=== PATIENT | male | born 1950 | race Two or more races ===

== ENCOUNTER 2020-02-21 04:54 | Inpatient (IN) | payer OTHER, MEDICAID ==
[~2020-02-21] VITALS: Ht 167.6 cm; Wt 87.8 kg
[2020-02-21 06:59] LABS: Basophils # (auto) 0 10 ^3/uL (0-0.2); Basophils % (auto) 0.3 % (0.0-2.0); Eosinophils # (auto) 0 10 ^3/uL (0-0.8); Eosinophils % (auto) 0.1 % (0.0-7.0); Hematocrit 38.6 % (41.0-53.0); Hemoglobin 13.2 g/dL (13.5-17.5); Lymphocytes % (auto) 11.1 % (10.0-50.0); Mean Corpuscular Hemoglobin 30.2 pg (28.0-32.0); Mean Corpuscular Hgb Conc. 34.2 g/dL (32.0-36.0); Mean Corpuscular Volume 88.3 fL (80.0-100.0); Neutrophils # (auto) 6.7 10 ^3/uL (1.6-8.6); Neutrophils % (auto) 76.5 % (37.0-80.0); Red Blood Cells 4.37 10^6/uL (4.5-5.90); Red Cell Distribution Width 14.7 % (11.8-14.3); White Blood Cell 8.8 10^3/uL (4.4-10.8)
[2020-02-21 07:14] LABS: INR 1.1 (0.9-1.15); Partial Thromboplastin Time 32.4 sec (23.0-31.2)
[2020-02-21 07:15] LABS: Chloride 98 mmol/L (98-107); Sodium 129 mmol/L (136-145)
[2020-02-21 07:18] LABS: Albumin 3.1 g/dL (3.4-5.0); Anion Gap 6 (5-15); BUN/Creatinine Ratio 14.4; Blood Urea Nitrogen 18 mg/dL (7-18); Calcium 9.1 mg/dL (8.5-10.1); Carbon Dioxide 25 mmol/L (21-32); GFR African American 73 mL/min; GFR Non-African American 61 mL/min; Glucose 237 mg/dL (74-106); Magnesium 1.9 mg/dL (1.6-2.6)
[2020-02-21 07:24] LABS: Alanine Aminotransferase 118 U/L (16-61); Alkaline Phosphatase 93 U/L (45-117); Aspartate Aminotransferase 77 U/L (15-37); Bilirubin, Total 0.6 mg/dL (0.2-1.0)
[2020-02-21] MEDS ORDERED: REMDESIVIR PER PHARMACY 0 ML IV SCH (15:00)
[2020-02-21] MEDS ORDERED: diphenhdrAMINE HCL 50 MG/1 ML VL IV PRN (15:00)
[2020-02-21] MEDS ORDERED: MORPHINE SULFATE INJECTION 2 MG/ML SYRG IV PRN ×2 (15:00→15:15)
[2020-02-21] MEDS ORDERED: NITROGLYCERIN 0.4 MG SL TAB SL PRN (15:00)
[2020-02-21] MEDS ORDERED: DEXTROSE (50%) 50ML SYRG IV PRN (15:15)
[2020-02-21] MEDS ORDERED: ONDANSETRON HCL 4 MG/2 ML VIAL IV PRN (15:15)
[2020-02-21] MEDS ORDERED: TEMAZEPAM 15 MG CAP PO PRN (15:15)
[2020-02-21] MEDS ORDERED: LACTULOSE 20Gm/30ML SOLN PO PRN (15:15)
[2020-02-21] MEDS ORDERED: traMADol HCL 50 MG TAB PO PRN (15:15)
[2020-02-21] MEDS ORDERED: ACETAMINOPHEN 500 MG TAB PO PRN (15:15)
[2020-02-21] MEDS: BUDESONIDE (INHALATION) 180 MCG IH IN SCH (19:58)
[2020-02-21] MEDS: InsuLIN REG 1unit/0.01ml Soln (100units/ml) SC SCH ×2 (22:00→22:54)
[2020-02-21] MEDS: ACCU-CHEK COMFORT CURVE STRIP VI SCH ×2 (22:00→22:54)
[2020-02-21] MEDS: SODIUM CHLORIDE 0.9% 1,000 ML IV SCH (22:53)
[2020-02-21] MEDS: FAMOTIDINE (10MG/ML) 2ML VL IV SCH (22:54)
[2020-02-21] MEDS: ENOXAPARIN SOD 40 MG/0.4 ML SYRINGE SC SCH (22:55)
[2020-02-22] VITALS: BP 155/72
[2020-02-22] MEDS: SODIUM CHLORIDE 0.9% 1,000 ML IV SCH (04:41)
[2020-02-22 05:49] LABS: Basophils # (auto) 0 10 ^3/uL (0-0.2); Basophils % (auto) 0.3 % (0.0-2.0); Eosinophils # (auto) 0 10 ^3/uL (0-0.8); Eosinophils % (auto) 0.3 % (0.0-7.0); Hematocrit 35.7 % (41.0-53.0); Hemoglobin 12.3 g/dL (13.5-17.5); Lymphocytes # (auto) 0.9 10 ^3/uL (0.4-5.4); Mean Corpuscular Hemoglobin 30.5 pg (28.0-32.0); Mean Corpuscular Hgb Conc. 34.6 g/dL (32.0-36.0); Mean Corpuscular Volume 88.2 fL (80.0-100.0); Monocytes % (auto) 11.8 % (0.0-12.0); Neutrophils # (auto) 6.5 10 ^3/uL (1.6-8.6); Neutrophils % (auto) 76.6 % (37.0-80.0); Nucleated Red Blood Cells % 0.1 %; Red Blood Cells 4.04 10^6/uL (4.5-5.90); Red Cell Distribution Width 14.4 % (11.8-14.3); White Blood Cell 8.4 10^3/uL (4.4-10.8)
[2020-02-22 06:05] LABS: Albumin 2.4 g/dL (3.4-5.0); Calcium 8.3 mg/dL (8.5-10.1); Potassium 3.9 mmol/L (3.5-5.1)
[2020-02-22 06:09] LABS: BUN/Creatinine Ratio 12.7; Bilirubin, Total 0.5 mg/dL (0.2-1.0); Total Protein 7.1 g/dL (6.4-8.2)
[2020-02-22] MEDS: InsuLIN REG 1unit/0.01ml Soln (100units/ml) SC SCH ×4 (07:00→22:35)
[2020-02-22] MEDS: ACCU-CHEK COMFORT CURVE STRIP VI SCH ×4 (07:03→22:36)
[2020-02-22] MEDS: CHOLECALCIFEROL (VITD3) 2,000 UNIT CAP/TAB PO SCH (09:24)
[2020-02-22] MEDS: ASCORBIC ACID 1,000 MG TAB PO SCH (09:24)
[2020-02-22] MEDS: ZINC SULFATE 220mg CAP or TAB PO SCH (09:24)
[2020-02-22] MEDS: FAMOTIDINE (10MG/ML) 2ML VL IV SCH ×2 (09:24→22:25)
[2020-02-22] MEDS: DexAMETHasone SOD PHOS 10MG/1ML VIAL INJ IV SCH (09:24)
[2020-02-22] MEDS: ENOXAPARIN SOD 40 MG/0.4 ML SYRINGE SC SCH ×2 (09:24→22:36)
[2020-02-22] MEDS: BUDESONIDE (INHALATION) 180 MCG IH IN SCH ×2 (10:00→20:50)
[2020-02-22] MEDS ORDERED: levoFLOXacin 500MG 100 ML IV SCH (10:00)
[2020-02-22] MEDS ORDERED: INSULIN LANTUS (GLARGINE) 1 /0.01ml (100units/ml) SC ONE (10:45)
[2020-02-22] MEDS ORDERED: DEXTROSE (50%) 50ML SYRG IV PRN (10:45)
[2020-02-22] MEDS ORDERED: FUROSEMIDE 40 MG/4 ML VIAL IV ONE (14:45)
[2020-02-22] MEDS ORDERED: INSULIN LANTUS (GLARGINE) 1 /0.01ml (100units/ml) SC SCH (22:00)
[2020-02-22] MEDS ORDERED: REMDESIVIR 200 MG in NS 210ml LOADING DOSE ADULT IV ONE (23:30)
[2020-02-23] VITALS: BP 155/72
[2020-02-23] MEDS: ACCU-CHEK COMFORT CURVE STRIP VI SCH ×4 (05:39→21:29)
[2020-02-23] MEDS: InsuLIN REG 1unit/0.01ml Soln (100units/ml) SC SCH ×4 (05:40→21:27)
[2020-02-23] MEDS: BUDESONIDE (INHALATION) 180 MCG IH IN SCH ×2 (07:25→21:10)
[2020-02-23 08:00] VITALS: BP 137/81
[2020-02-23 08:08] LABS: Basophils # (auto) 0 10 ^3/uL (0-0.2); Basophils % (auto) 0.3 % (0.0-2.0); Eosinophils # (auto) 0 10 ^3/uL (0-0.8); Hematocrit 38.6 % (41.0-53.0); Hemoglobin 13.3 g/dL (13.5-17.5); Lymphocytes # (auto) 1.4 10 ^3/uL (0.4-5.4); Lymphocytes % (auto) 14.5 % (10.0-50.0); Mean Corpuscular Hemoglobin 30.6 pg (28.0-32.0); Mean Corpuscular Hgb Conc. 34.4 g/dL (32.0-36.0); Mean Corpuscular Volume 88.9 fL (80.0-100.0); Monocytes # (auto) 1.1 10 ^3/uL (0-1.3); Neutrophils # (auto) 7.1 10 ^3/uL (1.6-8.6); Neutrophils % (auto) 74.2 % (37.0-80.0); Nucleated Red Blood Cells % 0.2 %; Red Blood Cells 4.35 10^6/uL (4.5-5.90); Red Cell Distribution Width 14.5 % (11.8-14.3); White Blood Cell 9.6 10^3/uL (4.4-10.8)
[2020-02-23 08:17] LABS: Potassium 3.7 mmol/L (3.5-5.1)
[2020-02-23 08:24] LABS: Albumin 2.6 g/dL (3.4-5.0); BUN/Creatinine Ratio 14.5; Bilirubin, Total 0.6 mg/dL (0.2-1.0); Calcium 9.2 mg/dL (8.5-10.1); Total Protein 8.3 g/dL (6.4-8.2)
[2020-02-23] MEDS ORDERED: INSULIN LANTUS (GLARGINE) 1 /0.01ml (100units/ml) SC SCH (10:00)
[2020-02-23] MEDS: INSULIN LANTUS (GLARGINE) 1 /0.01ml (100units/ml) SC SCH ×2 (11:00→21:28)
[2020-02-23] MEDS: levoFLOXacin 750MG 150 ML IV SCH (11:30)
[2020-02-23] MEDS: CHOLECALCIFEROL (VITD3) 2,000 UNIT CAP/TAB PO SCH (11:40)
[2020-02-23] MEDS: ZINC SULFATE 220mg CAP or TAB PO SCH (11:40)
[2020-02-23] MEDS: ASCORBIC ACID 1,000 MG TAB PO SCH (11:41)
[2020-02-23] MEDS: DexAMETHasone SOD PHOS 10MG/1ML VIAL INJ IV SCH (11:45)
[2020-02-23] MEDS: FUROSEMIDE 40 MG/4 ML VIAL IV SCH (11:45)
[2020-02-23] MEDS: FAMOTIDINE (10MG/ML) 2ML VL IV SCH ×2 (11:45→21:29)
[2020-02-23] MEDS: ENOXAPARIN SOD 40 MG/0.4 ML SYRINGE SC SCH ×2 (11:45→21:29)
[2020-02-23] MEDS: REMDESIVIR 100 MG in SODIUM CHL 0.9% 250 ML IV SCH (15:11)
[2020-02-23 16:18] VITALS: BP 154/91
[2020-02-23] MEDS: ALBUTEROL SULF HFA 90MCG INH 200DOSE IN PRN (21:10)
[2020-02-24] VITALS: BP 158/89
[2020-02-24] MEDS: ACCU-CHEK COMFORT CURVE STRIP VI SCH ×4 (05:22→21:09)
[2020-02-24] MEDS: InsuLIN REG 1unit/0.01ml Soln (100units/ml) SC SCH ×4 (05:25→21:06)
[2020-02-24] MEDS: BUDESONIDE (INHALATION) 180 MCG IH IN SCH ×2 (07:25→20:54)
[2020-02-24] MEDS: ALBUTEROL SULF HFA 90MCG INH 200DOSE IN PRN ×2 (07:25→20:54)
[2020-02-24 08:00] VITALS: BP 138/71
[2020-02-24 08:10] LABS: Albumin 2.6 g/dL (3.4-5.0); BUN/Creatinine Ratio 22.5; Bilirubin, Total 0.5 mg/dL (0.2-1.0); Calcium 9.2 mg/dL (8.5-10.1); Total Protein 7.8 g/dL (6.4-8.2)
[2020-02-24] MEDS: ZINC SULFATE 220mg CAP or TAB PO SCH (09:55)
[2020-02-24] MEDS: ASCORBIC ACID 1,000 MG TAB PO SCH (09:55)
[2020-02-24] MEDS: CHOLECALCIFEROL (VITD3) 2,000 UNIT CAP/TAB PO SCH (09:56)
[2020-02-24] MEDS: FAMOTIDINE (10MG/ML) 2ML VL IV SCH ×2 (09:56→21:07)
[2020-02-24] MEDS: FUROSEMIDE 40 MG/4 ML VIAL IV SCH (09:56)
[2020-02-24] MEDS: levoFLOXacin 750MG 150 ML IV SCH (09:57)
[2020-02-24] MEDS: DexAMETHasone SOD PHOS 10MG/1ML VIAL INJ IV SCH (09:57)
[2020-02-24] MEDS: ENOXAPARIN SOD 40 MG/0.4 ML SYRINGE SC SCH (09:57)
[2020-02-24 11:39] LABS: CRP High Sensitivity 4.02 mg/dL (< 0.3)
[2020-02-24] MEDS: INSULIN LANTUS (GLARGINE) 1 /0.01ml (100units/ml) SC SCH ×2 (12:33→21:07)
[2020-02-24] MEDS: REMDESIVIR 100 MG in SODIUM CHL 0.9% 250 ML IV SCH (14:35)
[2020-02-24 16:00] VITALS: BP 151/78
[2020-02-24] MEDS ORDERED: diphenhdrAMINE HCL 50 MG/1 ML VL IV ONE (16:30)
[2020-02-24] MEDS ORDERED: methylPREDNISolone SOD SUCC 40 MG/ML VL IV ONE (16:30)
[2020-02-24] MEDS ORDERED: ACETAMINOPHEN 650 mg PER 20.3 mL UD PO ONE (16:30)
[2020-02-24 16:55] VITALS: BP 155/94
[2020-02-24] MEDS ORDERED: TOCILIZUMAB 400 MG in SODIUM CHL 0.9% 80 ML IV ONE (17:00)
[2020-02-24 17:10] VITALS: BP 160/98
[2020-02-24 18:33] VITALS: BP 151/81
[2020-02-24] MEDS: ENOXAPARIN SOD 100 MG/1 ML SYRINGE SC SCH (21:09)
[2020-02-25] VITALS: BP 120/58
[2020-02-25] MEDS: InsuLIN REG 1unit/0.01ml Soln (100units/ml) SC SCH ×4 (05:25→21:52)
[2020-02-25] MEDS: ACCU-CHEK COMFORT CURVE STRIP VI SCH ×4 (05:26→21:54)
[2020-02-25] MEDS: ALBUTEROL SULF HFA 90MCG INH 200DOSE IN PRN ×2 (06:30→21:05)
[2020-02-25] MEDS: BUDESONIDE (INHALATION) 180 MCG IH IN SCH ×2 (06:30→21:04)
[2020-02-25 07:48] LABS: Albumin 2.7 g/dL (3.4-5.0); BUN/Creatinine Ratio 22.1; Bilirubin, Total 0.5 mg/dL (0.2-1.0); Calcium 9.5 mg/dL (8.5-10.1); Potassium 4.2 mmol/L (3.5-5.1); Total Protein 8.3 g/dL (6.4-8.2)
[2020-02-25 08:00] VITALS: BP 121/62
[2020-02-25] MEDS: DexAMETHasone SOD PHOS 10MG/1ML VIAL INJ IV SCH (09:21)
[2020-02-25] MEDS: FUROSEMIDE 40 MG/4 ML VIAL IV SCH (09:21)
[2020-02-25] MEDS: ZINC SULFATE 220mg CAP or TAB PO SCH (09:21)
[2020-02-25] MEDS: ASCORBIC ACID 1,000 MG TAB PO SCH (09:21)
[2020-02-25] MEDS: FAMOTIDINE (10MG/ML) 2ML VL IV SCH ×2 (09:21→21:54)
[2020-02-25] MEDS: levoFLOXacin 750MG 150 ML IV SCH (09:21)
[2020-02-25] MEDS: CHOLECALCIFEROL (VITD3) 2,000 UNIT CAP/TAB PO SCH (09:22)
[2020-02-25] MEDS: ENOXAPARIN SOD 100 MG/1 ML SYRINGE SC SCH (09:23)
[2020-02-25] MEDS ORDERED: diphenhdrAMINE HCL 50 MG/1 ML VL IV ONE (10:00)
[2020-02-25] MEDS ORDERED: ACETAMINOPHEN 650 mg PER 20.3 mL UD PO ONE (10:00)
[2020-02-25] MEDS ORDERED: TOCILIZUMAB 400 MG in SODIUM CHL 0.9% 80 ML IV ONE (10:30)
[2020-02-25] MEDS: INSULIN LANTUS (GLARGINE) 1 /0.01ml (100units/ml) SC SCH ×2 (11:06→21:53)
[2020-02-25 16:00] VITALS: BP 150/82
[2020-02-25] MEDS: REMDESIVIR 100 MG in SODIUM CHL 0.9% 250 ML IV SCH (16:02)
[2020-02-25] MEDS: ENOXAPARIN SOD 40 MG/0.4 ML SYRINGE SC SCH (21:54)
[2020-02-26] VITALS: BP 149/62
[2020-02-26] MEDS: InsuLIN REG 1unit/0.01ml Soln (100units/ml) SC SCH ×4 (06:48→21:15)
[2020-02-26] MEDS: ACCU-CHEK COMFORT CURVE STRIP VI SCH ×4 (06:49→21:17)
[2020-02-26 08:00] VITALS: BP 143/71
[2020-02-26 09:05] LABS: Calcium 9.8 mg/dL (8.5-10.1); Potassium 3.6 mmol/L (3.5-5.1)
[2020-02-26 09:08] LABS: BUN/Creatinine Ratio 21.3; Bilirubin, Total 0.6 mg/dL (0.2-1.0); Total Protein 8.6 g/dL (6.4-8.2)
[2020-02-26] MEDS: DexAMETHasone SOD PHOS 10MG/1ML VIAL INJ IV SCH (09:35)
[2020-02-26] MEDS: FUROSEMIDE 40 MG/4 ML VIAL IV SCH (09:35)
[2020-02-26] MEDS: FAMOTIDINE (10MG/ML) 2ML VL IV SCH ×2 (09:35→21:16)
[2020-02-26] MEDS: levoFLOXacin 750MG 150 ML IV SCH (09:36)
[2020-02-26] MEDS: ASCORBIC ACID 1,000 MG TAB PO SCH (09:36)
[2020-02-26] MEDS: CHOLECALCIFEROL (VITD3) 2,000 UNIT CAP/TAB PO SCH (09:36)
[2020-02-26] MEDS: ZINC SULFATE 220mg CAP or TAB PO SCH (09:36)
[2020-02-26] MEDS ORDERED: hydrALAZINE HCL 10 MG TAB PO PRN (09:45)
[2020-02-26] MEDS: BUDESONIDE (INHALATION) 180 MCG IH IN SCH ×2 (10:00→20:00)
[2020-02-26] MEDS: ENOXAPARIN SOD 40 MG/0.4 ML SYRINGE SC SCH ×2 (11:24→21:16)
[2020-02-26] MEDS: LISINOPRIL 20 MG TAB PO SCH (11:34)
[2020-02-26] MEDS: INSULIN LANTUS (GLARGINE) 1 /0.01ml (100units/ml) SC SCH ×2 (11:38→21:15)
[2020-02-26] MEDS: REMDESIVIR 100 MG in SODIUM CHL 0.9% 250 ML IV SCH (15:14)
[2020-02-26 16:00] VITALS: BP 126/71
[2020-02-26] MEDS ORDERED: INSULIN LANTUS (GLARGINE) 1 /0.01ml (100units/ml) SC ONE (18:15)
[2020-02-26] MEDS: ALBUTEROL SULF HFA 90MCG INH 200DOSE IN PRN (20:00)
[2020-02-27] VITALS: BP 121/71
[2020-02-27] MEDS: ACCU-CHEK COMFORT CURVE STRIP VI SCH ×4 (05:41→20:23)
[2020-02-27] MEDS: InsuLIN REG 1unit/0.01ml Soln (100units/ml) SC SCH ×4 (05:41→20:29)
[2020-02-27 07:45] LABS: Hemoglobin 15.1 g/dL (13.5-17.5); Lymphocytes # (auto) 1.8 10 ^3/uL (0.4-5.4); Lymphocytes % (auto) 10.8 % (10.0-50.0); Neutrophils # (auto) 13.8 10 ^3/uL (1.6-8.6); Red Cell Distribution Width 14.6 % (11.8-14.3)
[2020-02-27 07:49] LABS: Basophils # (auto) 0.1 10 ^3/uL (0-0.2); Basophils % (auto) 0.4 % (0.0-2.0); Eosinophils # (auto) 0.1 10 ^3/uL (0-0.8); Eosinophils % (auto) 0.4 % (0.0-7.0); Hematocrit 43.8 % (41.0-53.0); Mean Corpuscular Hemoglobin 30.2 pg (28.0-32.0); Mean Corpuscular Hgb Conc. 34.4 g/dL (32.0-36.0); Mean Corpuscular Volume 87.9 fL (80.0-100.0); Monocytes # (auto) 1.3 10 ^3/uL (0-1.3); Monocytes % (auto) 7.4 % (0.0-12.0); Nucleated Red Blood Cells % 0.1 %; Red Blood Cells 4.98 10^6/uL (4.5-5.90)
[2020-02-27 08:00] VITALS: BP 116/68
[2020-02-27 08:04] LABS: Potassium 3.9 mmol/L (3.5-5.1)
[2020-02-27 08:13] LABS: Albumin 2.9 g/dL (3.4-5.0); BUN/Creatinine Ratio 23.1; Bilirubin, Total 0.6 mg/dL (0.2-1.0); Calcium 9.6 mg/dL (8.5-10.1); Total Protein 8.1 g/dL (6.4-8.2)
[2020-02-27] MEDS: FUROSEMIDE 40 MG/4 ML VIAL IV SCH (10:00)
[2020-02-27] MEDS: INSULIN LANTUS (GLARGINE) 1 /0.01ml (100units/ml) SC SCH ×2 (10:00→23:12)
[2020-02-27] MEDS: BUDESONIDE (INHALATION) 180 MCG IH IN SCH ×2 (10:00→19:30)
[2020-02-27] MEDS: DexAMETHasone SOD PHOS 10MG/1ML VIAL INJ IV SCH (10:06)
[2020-02-27] MEDS: ASCORBIC ACID 1,000 MG TAB PO SCH (10:08)
[2020-02-27] MEDS: FAMOTIDINE (10MG/ML) 2ML VL IV SCH ×2 (10:08→23:10)
[2020-02-27] MEDS: levoFLOXacin 750MG 150 ML IV SCH (10:08)
[2020-02-27] MEDS: ZINC SULFATE 220mg CAP or TAB PO SCH (10:08)
[2020-02-27] MEDS: ENOXAPARIN SOD 40 MG/0.4 ML SYRINGE SC SCH ×2 (10:09→23:10)
[2020-02-27] MEDS: CHOLECALCIFEROL (VITD3) 2,000 UNIT CAP/TAB PO SCH (10:09)
[2020-02-27] MEDS: LISINOPRIL 20 MG TAB PO SCH (10:09)
[2020-02-27 16:00] VITALS: BP 123/70
[2020-02-27] MEDS ORDERED: InsuLIN REG 1unit/0.01ml Soln (100units/ml) SC ONE (18:30)
[2020-02-27] MEDS ORDERED: DEXTROSE (50%) 50ML SYRG IV PRN (19:00)
[2020-02-27] MEDS: ALBUTEROL SULF HFA 90MCG INH 200DOSE IN PRN (19:30)
[2020-02-27] MEDS ORDERED: INSULIN LANTUS (GLARGINE) 1 /0.01ml (100units/ml) SC SCH (22:00)
[2020-02-28] VITALS: BP 137/65
[2020-02-28] MEDS: InsuLIN REG 1unit/0.01ml Soln (100units/ml) SC SCH ×6 (01:46→20:30)
[2020-02-28] MEDS: ACCU-CHEK COMFORT CURVE STRIP VI SCH ×6 (04:00→20:25)
[2020-02-28] MEDS: ALBUTEROL SULF HFA 90MCG INH 200DOSE IN PRN ×2 (07:03→20:19)
[2020-02-28] MEDS: BUDESONIDE (INHALATION) 180 MCG IH IN SCH ×2 (07:03→20:19)
[2020-02-28 08:00] VITALS: BP 123/70
[2020-02-28] MEDS: ASCORBIC ACID 1,000 MG TAB PO SCH (11:07)
[2020-02-28] MEDS: CHOLECALCIFEROL (VITD3) 2,000 UNIT CAP/TAB PO SCH (11:07)
[2020-02-28] MEDS: ZINC SULFATE 220mg CAP or TAB PO SCH (11:07)
[2020-02-28] MEDS: FUROSEMIDE 40 MG/4 ML VIAL IV SCH (11:08)
[2020-02-28] MEDS: DexAMETHasone SOD PHOS 10MG/1ML VIAL INJ IV SCH (11:08)
[2020-02-28] MEDS: FAMOTIDINE (10MG/ML) 2ML VL IV SCH ×2 (11:09→22:53)
[2020-02-28] MEDS: ENOXAPARIN SOD 40 MG/0.4 ML SYRINGE SC SCH ×2 (11:09→22:54)
[2020-02-28] MEDS: LISINOPRIL 20 MG TAB PO SCH (11:10)
[2020-02-28] MEDS: INSULIN LANTUS (GLARGINE) 1 /0.01ml (100units/ml) SC SCH ×2 (11:20→22:55)
[2020-02-28] MEDS: levoFLOXacin 750MG 150 ML IV SCH (11:27)
[2020-02-28 16:14] VITALS: BP 137/81
[2020-02-28] MEDS ORDERED: InsuLIN REG 1unit/0.01ml Soln (100units/ml) IV ONE (16:45)
[2020-02-29] VITALS: BP 120/64
[2020-02-29] MEDS: InsuLIN REG 1unit/0.01ml Soln (100units/ml) SC SCH ×5 (00:39→17:54)
[2020-02-29] MEDS: ACCU-CHEK COMFORT CURVE STRIP VI SCH ×5 (04:00→17:15)
[2020-02-29 08:00] VITALS: BP 122/68
[2020-02-29] MEDS: DexAMETHasone SOD PHOS 10MG/1ML VIAL INJ IV SCH (08:41)
[2020-02-29] MEDS: FAMOTIDINE (10MG/ML) 2ML VL IV SCH ×2 (08:41→22:11)
[2020-02-29] MEDS: FUROSEMIDE 40 MG/4 ML VIAL IV SCH (08:41)
[2020-02-29] MEDS: CHOLECALCIFEROL (VITD3) 2,000 UNIT CAP/TAB PO SCH (08:42)
[2020-02-29] MEDS: ZINC SULFATE 220mg CAP or TAB PO SCH (08:42)
[2020-02-29] MEDS: LISINOPRIL 20 MG TAB PO SCH (08:42)
[2020-02-29] MEDS: ASCORBIC ACID 1,000 MG TAB PO SCH (08:42)
[2020-02-29] MEDS: ENOXAPARIN SOD 40 MG/0.4 ML SYRINGE SC SCH ×2 (08:43→22:11)
[2020-02-29] MEDS: INSULIN LANTUS (GLARGINE) 1 /0.01ml (100units/ml) SC SCH ×2 (08:51→22:00)
[2020-02-29] MEDS: levoFLOXacin 750MG 150 ML IV SCH (09:04)
[2020-02-29] MEDS: BUDESONIDE (INHALATION) 180 MCG IH IN SCH ×2 (09:51→23:14)
[2020-02-29] MEDS ORDERED: METH4PAK PO (10:31)
[2020-02-29] MEDS ORDERED: CHOL20007 PO (10:31)
[2020-02-29] MEDS ORDERED: ASCO500T11 PO (10:31)
[2020-02-29] MEDS ORDERED: PANT40TA2 PO (10:31)
[2020-02-29] MEDS ORDERED: ALBUAER3 IN (10:31)
[2020-02-29] MEDS ORDERED: ZINC220T6 PO (10:31)
[2020-02-29 10:53] LABS: Basophils # (auto) 0.1 10 ^3/uL (0-0.2); Eosinophils # (auto) 0.1 10 ^3/uL (0-0.8); Eosinophils % (auto) 0.6 % (0.0-7.0); Hemoglobin 16.2 g/dL (13.5-17.5); Lymphocytes # (auto) 1.3 10 ^3/uL (0.4-5.4); Mean Corpuscular Volume 89.4 fL (80.0-100.0); Nucleated Red Blood Cells % 0.1 %; White Blood Cell 16.6 10^3/uL (4.4-10.8)
[2020-02-29 10:56] LABS: Basophils % (auto) 0.5 % (0.0-2.0); Hematocrit 47.8 % (41.0-53.0); Lymphocytes % (auto) 7.9 % (10.0-50.0); Mean Corpuscular Hemoglobin 30.3 pg (28.0-32.0); Mean Corpuscular Hgb Conc. 33.9 g/dL (32.0-36.0); Monocytes # (auto) 0.9 10 ^3/uL (0-1.3); Monocytes % (auto) 5.5 % (0.0-12.0); Neutrophils # (auto) 14.2 10 ^3/uL (1.6-8.6); Neutrophils % (auto) 85.5 % (37.0-80.0); Red Blood Cells 5.35 10^6/uL (4.5-5.90); Red Cell Distribution Width 14.4 % (11.8-14.3)
[2020-02-29 12:05] LABS: Potassium 3.8 mmol/L (3.5-5.1)
[2020-02-29 12:34] LABS: Albumin 3.3 g/dL (3.4-5.0); Bilirubin, Total 0.7 mg/dL (0.2-1.0); Total Protein 8.7 g/dL (6.4-8.2)
[2020-02-29 16:00] VITALS: BP 125/69
[2020-02-29] MEDS ORDERED: InsuLIN REG 1unit/0.01ml Soln (100units/ml) IV ONE (17:00)
[2020-02-29] MEDS ORDERED: DEXTROSE (50%) 50ML SYRG IV PRN (17:15)
[2020-02-29] MEDS ORDERED: InsuLIN REG 1unit/0.01ml Soln (100units/ml) SC SCH (20:00)
[2020-02-29] MEDS: ALBUTEROL SULF HFA 90MCG INH 200DOSE IN PRN (23:14)
[2020-03-01] VITALS: BP 100/54
[2020-03-01 00:11] VITALS: BP 100/54
[2020-03-01] MEDS: InsuLIN REG 1unit/0.01ml Soln (100units/ml) SC SCH ×3 (00:20→12:00)
[2020-03-01] MEDS: ACCU-CHEK COMFORT CURVE STRIP VI SCH ×3 (00:20→12:00)
[2020-03-01 06:19] LABS: Eosinophils # (auto) 0.1 10 ^3/uL (0-0.8); Hemoglobin 14.7 g/dL (13.5-17.5); Monocytes # (auto) 1.5 10 ^3/uL (0-1.3); Red Cell Distribution Width 14.6 % (11.8-14.3)
[2020-03-01 06:22] LABS: Basophils # (auto) 0.1 10 ^3/uL (0-0.2); Basophils % (auto) 0.3 % (0.0-2.0); Eosinophils % (auto) 0.4 % (0.0-7.0); Hematocrit 43.8 % (41.0-53.0); Mean Corpuscular Hemoglobin 29.5 pg (28.0-32.0); Mean Corpuscular Hgb Conc. 33.4 g/dL (32.0-36.0); Mean Corpuscular Volume 88.3 fL (80.0-100.0); Monocytes % (auto) 8.2 % (0.0-12.0); Neutrophils # (auto) 14.7 10 ^3/uL (1.6-8.6); Neutrophils % (auto) 80.1 % (37.0-80.0); Nucleated Red Blood Cells % 0.1 %; Red Blood Cells 4.96 10^6/uL (4.5-5.90); White Blood Cell 18.3 10^3/uL (4.4-10.8)
[2020-03-01 06:40] LABS: Albumin 2.8 g/dL (3.4-5.0); BUN/Creatinine Ratio 25.5; Bilirubin, Total 0.5 mg/dL (0.2-1.0); Total Protein 7.2 g/dL (6.4-8.2)
[2020-03-01 08:00] VITALS: BP_SYST 105; BP_DIAS 60; BP_DIAS 71
[2020-03-01] MEDS: BUDESONIDE (INHALATION) 180 MCG IH IN SCH (08:40)
[2020-03-01] MEDS: ALBUTEROL SULF HFA 90MCG INH 200DOSE IN PRN (08:40)
[2020-03-01] MEDS: ZINC SULFATE 220mg CAP or TAB PO SCH (09:42)
[2020-03-01] MEDS: levoFLOXacin 750MG 150 ML IV SCH (09:42)
[2020-03-01] MEDS: DexAMETHasone SOD PHOS 10MG/1ML VIAL INJ IV SCH (09:42)
[2020-03-01] MEDS: FAMOTIDINE (10MG/ML) 2ML VL IV SCH (09:42)
[2020-03-01] MEDS: ASCORBIC ACID 1,000 MG TAB PO SCH (09:43)
[2020-03-01] MEDS: ENOXAPARIN SOD 40 MG/0.4 ML SYRINGE SC SCH (09:43)
[2020-03-01] MEDS: CHOLECALCIFEROL (VITD3) 2,000 UNIT CAP/TAB PO SCH (09:43)
[2020-03-01] MEDS: INSULIN LANTUS (GLARGINE) 1 /0.01ml (100units/ml) SC SCH (09:52)
[2020-03-01 10:37] VITALS: BP 122/68
== END 2020-03-01 14:10 | disposition home or self-care (01) | DRG 177 ==
LOC: ER 04:54 → OVERFLOW 14:49 → TELE-WESTW 02-22 22:35
PROVIDERS: ADMIT Internal Medicine; ATTEND Internal Medicine
PROC: XW033E5 Introduction of Remdesivir Anti-infective into Peripheral Vein, Percutaneous Approach, New Technology Group 5 (ICD-10-PCS; 2020-02-21)
PROC: XW13325 Transfusion of Convalescent Plasma (Nonautologous) into Peripheral Vein, Percutaneous Approach, New Technology Group 5 (ICD-10-PCS; principal; 2020-02-24)
DX: U07.1 COVID-19 (principal); J12.82 Pneumonia due to coronavirus disease 2019; J96.01 Acute respiratory failure with hypoxia; N17.0 Acute kidney failure with tubular necrosis; R65.10 Systemic inflammatory response syndrome (SIRS) of non-infectious origin without acute organ dysfunction; E87.1 Hypo-osmolality and hyponatremia; E44.1 Mild protein-calorie malnutrition; N18.31 Chronic kidney disease, stage 3a; E66.9 Obesity, unspecified; E11.65 Type 2 diabetes mellitus with hyperglycemia; E11.22 Type 2 diabetes mellitus with diabetic chronic kidney disease; I12.9 Hypertensive chronic kidney disease with stage 1 through stage 4 chronic kidney disease, or unspecified chronic kidney disease; Z83.3 Family history of diabetes mellitus; Z68.31 Body mass index [BMI] 31.0-31.9, adult
CPT/HCPCS: 36415; 36600; 71045; 71046; 80053; 82728; 82805; 82962; 83036; 83615; 83735; 83880; 84484; 85025; 85379; 85610; 85730; 86141; 86850; 86900; 86901; 87426; 93005; 93970; 94640; G0378; J1100; J1815; J1956; J3490